=== PATIENT | male | born 1985 | race African-American/Black ===

== ENCOUNTER 2021-03-19 16:07 | Emergency (ER) | payer OTHER ==
[~2021-03-19] VITALS: Ht 182.9 cm; Wt 97.5 kg
== END 2021-03-19 18:18 | disposition home or self-care (01) ==
LOC: FER 16:07
DX: B34.9 Viral infection, unspecified (principal); Z86.73 Personal history of transient ischemic attack (TIA), and cerebral infarction without residual deficits; Z88.0 Allergy status to penicillin; Z20.822 Contact with and (suspected) exposure to COVID-19
CPT/HCPCS: 99284; U0002